=== PATIENT | male | born 1950 ===

== ENCOUNTER 2017-09-25 10:30 | Inpatient (IN) | payer OTHER ==
[~2017-09-25] VITALS: Ht 180.3 cm; Wt 99.8 kg
[2017-09-25] MEDS ORDERED: METROPOLOL PO (12:51)
[2017-09-25] MEDS ORDERED: VASOTEC10 MG PO (12:51)
[2017-09-25] MEDS ORDERED: ISORBIDE PO (12:52)
[2017-09-25] MEDS ORDERED: LASIX20 MG PO (12:52)
[2017-09-25] MEDS ORDERED: SYNTHROID150 MCG PO (12:53)
[2017-09-25] MEDS ORDERED: ATORVASTATIN CA10 MG PO (12:54)
[2017-10-02] MEDS ORDERED: ISOSORBIDE DINI30 MG PO (09:13)
[2017-10-02] MEDS ORDERED: METOPROLOL TAR100 MG PO (09:14)
[2017-10-03] MEDS ORDERED: GABAPENTIN800 MG PO (10:09)
[2017-10-03] MEDS ORDERED: AMOX-CLAV 875-1 EACH PO (10:10)
[2017-10-03] MEDS ORDERED: DOCUSATE SODIU100 MG PO (10:10)
[2017-10-03] MEDS ORDERED: PERCOCET 5-3251 EACH PO (10:11)
[2017-10-03] MEDS ORDERED: RESTORIL30 M1 PO (10:11)
== END 2017-10-03 15:04 | DRG 455 ==
LOC: PED 10-02 05:30 → O/R 10-02 05:30 → SURH 10-02 10:00 → PED 10-02 15:01
PROVIDERS: Orthopaedic Surgery Orthopaedic Surgery of the Spine
PROC: 0SG0071 Fusion of Lumbar Vertebral Joint with Autologous Tissue Substitute, Posterior Approach, Posterior Column, Open Approach (ICD-10-PCS; 2017-10-02)
PROC: 0ST20ZZ Resection of Lumbar Vertebral Disc, Open Approach (ICD-10-PCS; 2017-10-02)
PROC: 0SG00AJ Fusion of Lumbar Vertebral Joint with Interbody Fusion Device, Posterior Approach, Anterior Column, Open Approach (ICD-10-PCS; 2017-10-02)
PROC: 07DS3ZZ Extraction of Vertebral Bone Marrow, Percutaneous Approach (ICD-10-PCS; 2017-10-02)
PROC: 0SG00A0 Fusion of Lumbar Vertebral Joint with Interbody Fusion Device, Anterior Approach, Anterior Column, Open Approach (ICD-10-PCS; principal; 2017-10-02 10:00)
DX: M51.16 Intervertebral disc disorders with radiculopathy, lumbar region (principal); M47.26 Other spondylosis with radiculopathy, lumbar region; I10 Essential (primary) hypertension; E03.8 Other specified hypothyroidism

== ENCOUNTER 2020-10-27 09:26 | Outpatient (CLI) | payer OTHER ==
[~2020-10-27 09:26] MED LIST: AMOX-CLAV 875-1 EACH PO; ATORVASTATIN CA10 MG PO; DOCUSATE SODIU100 MG PO; GABAPENTIN800 MG PO; ISORBIDE PO; ISOSORBIDE DINI30 MG PO; LASIX20 MG PO; METOPROLOL TAR100 MG PO; METROPOLOL PO; PERCOCET 5-3251 EACH PO; RESTORIL30 M1 PO; SYNTHROID150 MCG PO; VASOTEC10 MG PO
== END 2020-10-27 09:40 | disposition home or self-care (01) ==
LOC: SONOGRAMA 09:26
PROVIDERS: ATTEND Pathology Anatomic Pathology & Clinical Pathology
DX: E04.1 Nontoxic single thyroid nodule (principal)